=== PATIENT | female | born 1955 | race Caucasian/White ===

== ENCOUNTER 2018-11-15 14:37 | Emergency (ER) | payer BC, MEDICAID ==
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
== END 2018-11-15 17:31 | disposition home or self-care (01) ==
LOC: JP.ED 14:37
DX: S09.90XA Unspecified injury of head, initial encounter (principal); F41.9 Anxiety disorder, unspecified; F32.9 Major depressive disorder, single episode, unspecified; Z88.2 Allergy status to sulfonamides; W17.89XA Other fall from one level to another, initial encounter
CPT/HCPCS: 70450; 72125; 99284-25